=== PATIENT | female | born 1985 | race Caucasian/White ===

== ENCOUNTER 2021-04-08 02:57 | Inpatient (IN) | payer OTHER ==
[2021-04-08] MEDS ORDERED: METHYLERGONOVINE 0.2 MG/ML 1 ML AMP IM PRN (03:15)
[2021-04-08] MEDS ORDERED: OXYTOCIN 10 UNIT/ML 1 ML VIAL IM PRN (03:15)
[2021-04-08] MEDS ORDERED: AMPICILLIN 2,000 MG in SODIUM CHLORIDE 0.9% 100 ML IVPB STA (03:15)
[2021-04-08] MEDS ORDERED: LIDOCAINE 0.5% (PF) 5 MG/ML (50 ML SDV) SQ PRN (03:15)
[2021-04-08] MEDS ORDERED: CARBOPROST TROMETHAMINE 250 MCG/ML 1 ML AMP IM PRN (03:15)
[2021-04-08] MEDS ORDERED: TERBUTALINE 1 MG/ML VIAL SQ PRN (03:15)
[2021-04-08] MEDS: LACTATED RINGERS 1,000 ML IV SCH ×2 (03:58→12:38)
[2021-04-08] MEDS ORDERED: SODIUM CHLORIDE 0.9% 100 ML BAG ONE (04:25)
[2021-04-08] MEDS ORDERED: fentaNYL (PF) 50 MCG/ML 5 ML AMP ONE (04:25)
[2021-04-08] MEDS ORDERED: ROPIVACAINE 5MG/ML 20ML VIAL ONE (04:25)
[2021-04-08 04:26] LABS: Basophils % (A) 0 %; Eosinophils # (A) 0.2 k/uL (0-0.7); Eosinophils % (A) 2 %; HCT 31.9 % (34.0-46.0); HGB 10.4 gm/dL (11.4-16.0); Lymphocytes # (A) 1.7 k/uL (1.0-4.8); Lymphocytes % (A) 21 %; MCH 27.1 pg (25.0-35.0); MCHC 32.4 g/dL (31.0-37.0); MCV 83.6 fL (80.0-100.0); Mean Platelet Volume 10.5; Monocytes # (A) 0.4 k/uL (0-1.0); Monocytes % (A) 5 %; Neutrophils # (A) 5.6 k/uL (1.3-7.7); Neutrophils % (A) 69 %; Platelet Count 205 k/uL (150-450); RBC 3.82 m/uL (3.80-5.40); RDW 13.8 % (11.5-15.5); WBC 8.1 k/uL (3.8-10.6)
[2021-04-08 07:04] LABS: Amphetamine Screen,Urine Not Detected (NotDetected); Barbiturate Screen,Urine Not Detected (NotDetected); Benzodiazepines Screen,Urine Not Detected (NotDetected); Cocaine Screen,Urine Not Detected (NotDetected); Methadone Screen, Urine Not Detected (NotDetected); Opiate Screen,Urine Not Detected (NotDetected); Oxycodone Screen, Urine Not Detected (NotDetected); Phencyclidine Screen,Urine Not Detected (NotDetected); Tricyclic Antidepressant,Urine Not Detected (NotDetected); Urn Cannabinoid Scrn Not Detected (NotDetected)
[2021-04-08] MEDS ORDERED: AMPICILLIN 1,000 MG in SODIUM CHLORIDE 0.9% 50 ML IVPB SCH (07:20)
[2021-04-08 09:32] LABS: Amphetamine Screen,Urine Not Detected (NotDetected); Barbiturate Screen,Urine Not Detected (NotDetected); Benzodiazepines Screen,Urine Not Detected (NotDetected); Cocaine Screen,Urine Not Detected (NotDetected); Methadone Screen, Urine Not Detected (NotDetected); Opiate Screen,Urine Not Detected (NotDetected); Oxycodone Screen, Urine Not Detected (NotDetected); Phencyclidine Screen,Urine Not Detected (NotDetected); Tricyclic Antidepressant,Urine Not Detected (NotDetected); Urn Cannabinoid Scrn Not Detected (NotDetected)
[2021-04-08] MEDS ORDERED: OXYTOCIN 30 UNITS/500 ML NS 30 UNIT in SALINE 1 500ML.BAG IV SCH (10:00)
[2021-04-08] MEDS ORDERED: HYDROCORTISONE 2.5% RECTAL CREAM 30 GM TUBE RECTAL PRN (11:12)
[2021-04-08] MEDS ORDERED: diphenhydrAMINE 25 MG CAP PO PRN (11:12)
[2021-04-08] MEDS ORDERED: LANOLIN CREAM 5 GM TUBE TOPICAL PRN (11:12)
[2021-04-08] MEDS ORDERED: ACETAMINOPHEN TAB 325 MG TAB PO PRN (11:12)
[2021-04-08] MEDS ORDERED: SIMETHICONE 80 MG CHEWABLE PO PRN (11:12)
[2021-04-08] MEDS ORDERED: MEASLES-MUMPS-RUBELLA VACC/PF 12,500 UNIT/0.5 ML VIAL SQ ONE (11:12)
[2021-04-08] MEDS ORDERED: ZOLPIDEM 5 MG TAB PO PRN (11:12)
[2021-04-08] MEDS ORDERED: diphenhydrAMINE 50 MG/ML 1 ML VIAL IVP PRN ×2 (11:12)
[2021-04-08] MEDS ORDERED: diphenhydrAMINE 50 MG CAP PO PRN (11:12)
[2021-04-08] MEDS ORDERED: BENZOCAINE/MENTHOL SPRAY 1 GM/SPRAY AEROSOL TOPICAL PRN (11:12)
--- NOTE | 2021-04-08 11:18 | P.HPOB ---
History of Present Illness H&P Date: 04/08/21 Chief Complaint: intrauterine at 40 weeks: Spontaneous rupture franklyn Mckeon is a at 40 weeks 3 days' gestation who received her [facility] through a full hospital. She relates that she saw her physician yesterday who stripped her membranes and then last night at approximately 2:30 AM she had spontaneous rupture membranes and came to [facility]. Positive rupture membranes was documented and she was dilated to 4-5 cm. With that dilation decision to keep her rather than trying transfer her was made in she's been admitted. I had no documentation group B strep status so antibiotics were hung as prophylaxis. She is [place] irregularly at this time but will plan to allow her to go into labor slit antibiotics can be infused. Questions are answered for her. She relates no significant competitions or problems with the . She relates no significant problems or competitions to her health and other than an eye surgery she has had no other surgeries. Pertinent labs that were forwarded from hospital did include O+ blood type rubella was indeterminate hepatitis B surface antigen was negative HIV was negative her some question as to light meconium staining. A category 1 tracing is noted. All questions are answered for her and she intends to use an epidural for analgesia. Urine drug screen was positive for methamphetamines and controlled confirmatory testing is underway. Past Medical History Past Medical History: No Reported History History of Any Multi-Drug Resistant Organisms: None Reported Additional Past Surgical History / Comment(s): eye surgery at 4 years old Past Anesthesia/Blood Transfusion Reactions: No Reported Reaction Past Psychological History: No Psychological Hx Reported Smoking Status: Former smoker Past Drug Use History: None Reported - Past Family History Father Family Medical History: No Reported History Medications and Allergies Home Medications Medication Instructions Recorded Confirmed Type Pnv No.95/Ferrous Fum/Folic AC 1 tab PO DAILY 04/08/21 04/08/21 History [ Multivitamin Tablet] Allergies Allergy/AdvReac Type Severity Reaction Status Date / Time No Known Allergies Allergy Verified 04/08/21 02:58 Exam Osteopathic Statement: *. No significant issues noted on an osteopathic structural exam other than those noted in the History and Physical/Consult. Vital Signs Temp Pulse Resp BP Pulse Ox 04/08/21 03:14 80 16 136/69 100 04/08/21 02:58 98.0 F 80 16 134/63 99 Intake and Output 04/07/21 04/08/21 04/08/21 22:59 06:59 14:59 Output Total 300 Balance -300 Output: Urine 300 Other: Weight 79.379 kg - OBG Physical Exam Breast: both: normal (no masses) Abdomen: bowel sounds normal, no diffuse tenderness, no bruit present, no guarding noted, no hepatomegaly, no splenomegaly, no mass Vulva: both: normal Vagina: normal moisture, no discharge Cervix: no lesion, no discharge Uterus: normal size, normal contour Adnexa: both: normal Anus/Rectum: normal perianal skin, no rectal mass, no hemorrhoids, heme negative Results Result Diagrams: 04/08/21 03:45 Abnormal Lab Results - Last 24 Hours (Table) 04/08/21 04/08/21 04/08/21 Range/Units 03:45 06:42 09:06 Hgb 10.4 L (11.4-16.0) gm/dL Hct 31.9 L (34.0-46.0) % U Methamphetamines Scrn Detected H Detected H (NotDetected)
--- NOTE | 2021-04-08 11:22 | P.PROBDLV ---
Vaginal Delivery Note - . Vaginal Delivery Note: Linda progressed complete and pushing with spontaneous vaginal delivery of a viable female over intact perineum. There was delivered from right occiput anterior position. Fundal deliver the head anterior posterior shoulders were easily delivered. I did grasp underneath the axilla and deliver the posterior shoulder first as the baby did appear to be large and was I was trying to avoid any risk of shoulder dystocia but with gentle counterclockwise rotation both shoulders cleared the pubic synthesis and the remainder the baby was easily delivered. Mouth nares were then bulb suctioned and baby was placed on mother's abdomen where the umbilical cord was allowed to pulsate for 30 seconds prior to clamping and cutting. Once is accomplished nursery personnel was present and assumed care. Placenta was then delivered intact Pitocin was added to the IV. scores were 8 and 9 at one and 5 minutes respectively and the weight was 9 lbs. 8 oz. Both mother and baby are stable following delivery.
[2021-04-08] MEDS: IBUPROFEN 600 MG TAB PO SCH ×3 (13:13→23:44)
[2021-04-08] MEDS: SENNOSIDES-DOCUSATE SODIUM 1 EACH TAB PO SCH (23:43)
[2021-04-09] MEDS: IBUPROFEN 600 MG TAB PO SCH ×3 (06:16→19:40)
[2021-04-09] MEDS: SENNOSIDES-DOCUSATE SODIUM 1 EACH TAB PO SCH ×2 (12:52→19:51)
[2021-04-10] MEDS: IBUPROFEN 600 MG TAB PO SCH ×2 (05:27→07:17)
--- NOTE | 2021-04-10 07:45 | P.DS ---
Providers Date of admission: 04/08/21 03:07 Expected date of discharge: 04/10/21 Attending physician: Eusebio Ellison Primary care physician: Stated None Hospital Course: Linda is seen and evaluated. She is doing well day 2. She is discharged home today. Baby is still in special care nursery. We'll plan her follow-up through her primary roustabout supervisor X kt who is out of [facility]. Discharge instructions were thoroughly reviewed and all questions were answered for her. A prescription for Motrin was for her to her pharmacy and a breast pump prescription was provided. Otherwise vital signs are stable afebrile. H eart regular, lungs clear, extremities without pain. Abdomen is soft and uterus is firm below the umbilicus. Lochia is reported light. Assessment post day 2. Plan discharged home follow up with her roustabout supervisor in 6 weeks Patient Condition at Discharge: Good Plan - Discharge Summary New Discharge Prescriptions: New Ibuprofen [Motrin] 600 mg PO Q6HR PRN #30 tab PRN Reason: Pain No Action Pnv No.95/Ferrous Fum/Folic AC [ Multivitamin Tablet] 1 tab PO DAILY Discharge Medication List Pnv No.95/Ferrous Fum/Folic AC [ Multivitamin Tablet] 1 tab PO DAILY 04/08/21 [History] Ibuprofen [Motrin] 600 mg PO Q6HR PRN #30 tab 04/09/21 [Rx] Activity/Diet/Wound Care/Special Instructions: No heavy lifting, limit stairs and driving, and pelvic rest. If any high temperatures, heavy bleeding, or severe pain call my office Discharge Disposition: HOME SELF-CARE
[2021-04-10] MEDS: SENNOSIDES-DOCUSATE SODIUM 1 EACH TAB PO SCH (07:56)
[2021-04-10 15:29] LABS: Comprehensive Drug Screen Ur SeeBelow; Creatinine, Random Urine 124 mg/dL
[2021-04-10 16:22] VITALS: BP 133/76; PULSE 76; RESP 17; TEMP 97.9
== END 2021-04-10 19:02 | disposition home or self-care (01) | DRG 807 ==
LOC: FBPOP 02:57 → 4FBP 03:07
PROVIDERS: ADMIT Obstetrics & Gynecology; ATTEND Obstetrics & Gynecology
PROC: 10E0XZZ Delivery of Products of Conception, External Approach (ICD-10-PCS; principal; 2021-04-08)
DX: O36.63X0 Maternal care for excessive fetal growth, third trimester, not applicable or unspecified (principal); Z37.0 Single live birth; O77.0 Labor and delivery complicated by meconium in amniotic fluid; Z3A.40 40 weeks gestation of pregnancy; Z87.891 Personal history of nicotine dependence
CPT/HCPCS: 59025; 80306; 80307; 80326; 80377; 84112; 85025; 86850; 86900; 86901; 88307; 99213